=== PATIENT | male | born 1970 | race Caucasian/White ===

== ENCOUNTER → 2024-06-10 06:17 | Day surgery (SDC) | payer OTHER, SELFPAY ==
[2024-05-28 13:31] VITALS: BMI 28.6
[2024-06-10] VITALS (8 sets, daily range): BP systolic 122–159; BP diastolic 72–93; BMI 28.6
--- NOTE | 2024-06-10 07:32 | W.SUR.PREOP ---
Pre-Operative Surgical Note
-
I have examined this patient prior to the performance of the scheduled procedure.
The patient's condition is unchanged from the time of the current History and
Physical and the patient is able to undergo the scheduled procedure.
[2024-06-10] MEDS: TYLENOL 1000 MG PO (09:21)
[2024-06-10] MEDS: NORMOSOL-R/PLASMALYTE-A 1000 IV (09:22)
--- NOTE | 2024-06-10 12:51 | W.IMMPOSTOP ---
Surgical Immed Post Op Note
-
Primary Surgeon: Geraldo Garcia MD
Assisting Surgeon: None
Pre-op Diagnosis: Epigastric hernia
Post-op Diagnosis: Same
Procedure Performed: Robotic epigastric hernia repair with mesh
Anesthesia Type: General
Specimen / Cultures: None
Estimated Blood Loss: 7 cc
Complications: None
Operative Findings: Half a centimeter long by 1.5 cm wide epigastric hernia containing preperitoneal fat from the falciform ligament closed in the transverse direction with a 0 V-Loc 180 suture. The repair was then reinforced with a 9 cm round Bard
soft uncoated polypropylene mesh that was placed in the preperitoneal space.
--- NOTE | 2024-06-10 12:53 | OR.RPT ---
Operative Report
Operative Report
Patient Name: Matt Sanchez
: 1970
Date of Operation: 06/10/2024
Preoperative Diagnosis: Epigastric hernia
Postoperative Diagnosis: Same
Procedure(s):
Robotic epigastric hernia repair with mesh (LUKE approach)
Surgeon(s):
Dr. Garcia
Financial Director(s):
JASVIR Fernández
Anesthesia: General
Estimated Blood Loss: 7 cc
Urine Output: None
Drains/Lines/Implants:
9 cm round Bard soft mesh
Specimens:
None
HPI/Surgical Indications:
This is a 53-year-old male who was seen in my office for a symptomatic epigastric bulge and diagnosed with a reducible epigastric hernia. Risks/Benefits/Alternatives were discussed at length, and the patient agreed to proceed with surgery.
Operative Findings: 0.5 long by 1.5 cm wide epigastric hernia containing preperitoneal fat from the falciform ligament closed in the transverse direction with a 0 V-Loc 180 suture. The repair was then reinforced with a 9 cm round Bard soft uncoated
polypropylene mesh that was placed in the preperitoneal space.
Procedure Description:
The patient was brought to the Operating Room and placed in the supine position with the arms tucked. IV antibiotics were infused and Venodyne stockings placed. Following uneventful induction of general endotracheal anesthesia, an orogastric tube
was placed. The abdomen was prepped and draped in the usual sterile fashion. The abdomen was entered using a Veress technique which required 1 pass, pneumoperitoneum to 15 mmHg was obtained without difficulty. An 8mm trochar was passed through the
abdominal wall roughly 20 cm laterally from the defect in the left upper quadrant, we then confirmed that no inadvertent injury was made while passing the trocar or Veress needle. We then placed two additional 8 mm ports in the left lower quadrant.
Bilateral tap blocks were performed. The robot was docked. We then introduced our prograsper through the inferior/left hand port and a monopolar scissors through the superior port. We then turned our attention to the hernia which had no
intra-abdominal contents and appeared to contain preperitoneal fat from the falciform ligament. We then began taking a flap down roughly 5 cm away from the defect and roughly 10 cm in length taking care to stay in the pretransversalis plane. The
preperitoneal fat was taken down off of the posterior rectus sheath both superior and inferior to the hernia defect such that we were able to get our 'volcano sign'. We then worked on reducing the defect which contained preperitoneal fat and
continued our dissection out laterally for an additional 6 cm. Once our flap was created we introduced a ruler and a 0 V-Loc 180. The main hernia defect measured 0.5 x 1.5 cm wide. The pocket measured 10 x 10 cm cm. I had my computer assistant cut a 9 cm
round piece of Bard soft mesh marked with 0 Vicryl suture at the center, as I closed the umbilical defect. The mesh was then sutured to the posterior rectus sheath in 4 quadrants with 2-0 vircyls to ensure good apposition. A 2-0 Monocryl was
introduced which was used to close our flap. All sutures were removed. The robot was undocked. The ports were removed under direct visualization and pneumoperitoneum was evacuated. The port sites were closed with 4-0 Monocryl followed by
Dermabond. Counts were correct and overall, the patient tolerated the procedure well and was taken to the Recovery Room postoperatively in stable condition.
I was the attending physician and performed the procedure with assistance of the PA above. The assistance of JASVIR Fernández was required due to the complexity of the procedure. During the procedure Holli assisted with port placement, instrument
and needle exchanges, and closure of the wound. I was present for all portions of the case, excluding skin closure.
Geraldo Garcia MD
== END | disposition home or self-care (01) ==
LOC: SDS 06:17
PROVIDERS: ATTENDING PHYSICIAN Surgery; FAMILY PHYSICIAN Family Medicine
DX: K43.9 Ventral hernia without obstruction or gangrene (principal)
CPT/HCPCS: 49591; 36415; 93005; C1781